=== PATIENT | male | born 1985 | race Caucasian/White ===

== ENCOUNTER 2020-02-09 19:24 | Emergency (ER) | payer OTHER ==
--- NOTE | 2020-02-09 20:13 | ED Upper Extremity ---
General Chief Complaint: Upper Extremity Stated Complaint: RT SHOULD INJ Nursing Triage Note: Pt from [facility] and was working out in his cell and fell on his right shoulder. Nursing Sepsis Screen: No Definite Risk Source: patient History of Present Illness Date Seen by Provider: Feb 09, 2020 Time Seen by Provider: 19:45 Initial Comments Patient is a 34-year-old right-handed inmate who presents with right shoulder pain after fall from standing. Patient states he jammed his shoulder. Pain is moderate to severe worse with palpation and any movement. History of right rotator cuff repair. No obvious deformity on exam. No other injury or pain complain. Onset: just prior to arrival Severity: moderate Pain/Injury Location: right shoulder Method of Injury: direct blow Modifying Factors: Improves With Movement, Improves With Pain Medication Allergies and Home Medications Allergies Coded Allergies: No Known Drug Allergies (Unverified , 02/09/20) Patient Home Medication List Home Medication List Reviewed: Yes Review of Systems Constitutional: no symptoms reported EENTM: no symptoms reported Respiratory: no symptoms reported Cardiovascular: no symptoms reported Gastrointestinal: no symptoms reported Musculoskeletal: joint pain Skin: no symptoms reported Psychiatric/Neurological: No Symptoms Reported Past Ckkfseh-Lrwidt-Btbtni Hx Past Med/Social Hx: Reviewed Nursing Past Med/Soc Hx Patient Social History Alcohol Use: Denies Use Recreational Drug Use: No Smoking Status: Never a Smoker 2nd Hand Smoke Exposure: No Recent Foreign Travel: No Contact w/Someone Who Travel: No Recent Infectious Disease Expo: No Recent Hopitalizations: No Physical Abuse: No Sexual Abuse: No Past Medical History Surgeries: Yes Orthopedic Respiratory: No Cardiac: No Neurological: No Genitourinary: No Gastrointestinal: No Musculoskeletal: No Endocrine: No HEENT: No Cancer: No Psychosocial: No Integumentary: No Blood Disorders: No Physical Exam Vital Signs Vital Signs - First Documented 02/09/20 19:25 Temp 36.7 Pulse 81 Resp 18 B/P (MAP) 165/98 (120) Pulse Ox 96 O2 Delivery Room Air Capillary Refill : Less Than 3 Seconds Height, Weight, BMI Height: '" Weight: lbs. oz. kg; BMI Method: General Appearance: mild distress HEENT: PERRL/EOMI, normal ENT inspection, pharynx normal Neck: non-tender, supple, normal inspection Cardiovascular: regular rate, rhythm Respiratory: chest non-tender, lungs clear Gastrointestinal: non tender, soft Back: normal inspection Shoulder: bone tenderness, limited ROM, pain, soft tissue tenderness Elbow/Forearm: normal inspection Wrist: Yes normal inspection Hand: normal inspection Neurologic/Psychiatric: sr. consultant II-XII nml as tested, alert, oriented x 3 Skin: normal color Progress/Results/Core Measures Results/Orders My Orders Orders - BONNIE BLANCAS DO Shoulder 3 View Right (02/09/20 19:50) Ketorolac Injection (Toradol Injection) (02/09/20 20:15) Shoulder Immoblizer (02/09/20 20:05) Medications Given in ED Current Medications Medications Dose Ordered Sig/Jaqueline Route Start Time Stop Time Status Last Admin Dose Admin Ketorolac Tromethamine 60 mg ONCE ONCE IM 02/09/20 20:15 02/09/20 20:16 02/09/20 20:07 60 MG Vital Signs/I&O 02/09/20 19:25 Temp 36.7 Pulse 81 Resp 18 B/P (MAP) 165/98 (120) Pulse Ox 96 O2 Delivery Room Air Blood Pressure Mean: 120 Departure Communication (Admissions) Right shoulder x-ray: No obvious fracture dislocation. Soft tissue right shoulder injury. Pain address, patient placed in sling. Recommend supportive care with the [facility] follow-up. Impression Primary Impression: Sprain of shoulder, right Disposition: 01 HOME, SELF-CARE Condition: Stable Departure-Patient Inst. Decision time for Depature: 20:12 Referrals: NO,LOCAL PHYSICIAN (PCP/Family) Primary Care Physician Patient Instructions: Shoulder Sprain (DC) Add. Discharge Instructions: Please take ibuprofen or Tylenol for pain and wear shoulder immobilizer. Follow- up with the [facility]. All discharge instructions reviewed with patient and/or family. Voiced understanding. BONNIE BLANCAS DO Feb 09, 2020 20:12
[2020-02-09] MEDS ORDERED: KETOROLAC 60 MG/2 ML VIAL IM ONE (20:15)
[2020-02-09 20:19] VITALS: BP 165/98
--- NOTE | 2020-02-09 20:20 | Diagnostic Imaging Report ---
INDICATION: Fell, shoulder pain. EXAMINATION: Right shoulder at 7:52 p.m. Three views were obtained. COMPARISON: There is no prior study available for comparison. FINDINGS: This study is less than optimal due to motion artifact on the transaxial view. There is no fracture, dislocation or acute bony abnormality evident. 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 The acromion, itself, has somewhat irregular appearance. This may be a sequela of prior trauma. The soft tissues are unremarkable. There are surgical clips in the soft tissues along the inferior aspect of the humeral head. IMPRESSION: 1. There is no evidence for an acute bony abnormality. 2. There are degenerative and probable post traumatic changes involving the shoulder joint. 3. If there is clinical concern regarding injury to the rotator cuff or labrum, then MRI would be recommended for additional study. Dictated by: Dictated on workstation # [id number]
== END 2020-02-09 20:20 | disposition home or self-care (01) ==
LOC: ER FS 19:24 → EDBD 19:24 → ER FS 20:20
DX: S43.401A Unspecified sprain of right shoulder joint, initial encounter (principal); W23.0XXA Caught, crushed, jammed, or pinched between moving objects, initial encounter
CPT/HCPCS: 73030; 99283; L3650

== ENCOUNTER 2020-05-08 07:04 | Emergency (ER) | payer BC, OTHER ==
[~2020-05-08] VITALS: Ht 190 cm; Wt 108.8 kg
[2020-05-08 07:13] VITALS: BP 148/100
[2020-05-08] MEDS ORDERED: LIDOCAINE 1% INJ 20 ML 20 ML VIAL ONE (07:14)
[2020-05-08] MEDS ORDERED: CEPHALEXIN 250 MG (KEFLEX) CAP PO ONE (07:45)
--- NOTE | 2020-05-08 07:46 | ED Upper Extremity ---
General Chief Complaint: Laceration Stated Complaint: LT HAND LAC Nursing Triage Note: Patient reports he was working in the dark this morning and cut his left thumb/palm on something sharp. Nursing Sepsis Screen: No Definite Risk Source: patient History of Present Illness Date Seen by Provider: May 08, 2020 Time Seen by Provider: 07:20 Initial Comments Patient is a 34-year-old right-handed male who presents with laceration to left thumb base. 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 He did not see what he cut his hand on. Tetanus is up-to-date. On exam, patient has 4 cm full-thickness laceration following the pattern of the proximal thumb crease. No loss of motor function or sensation. Injury occurred just prior to ED arrival. Onset: just prior to arrival Pain/Injury Location: left thumb Method of Injury: incised Modifying Factors: Improves With Other Allergies and Home Medications Allergies Coded Allergies: No Known Drug Allergies (Unverified , 02/09/20) Patient Home Medication List Home Medication List Reviewed: Yes Review of Systems Constitutional: see HPI EENTM: see HPI Respiratory: see HPI Cardiovascular: see HPI Gastrointestinal: see HPI Genitourinary: see HPI Musculoskeletal: see HPI Skin: see HPI Psychiatric/Neurological: See HPI All Other Systems Reviewed Negative Unless Noted: Yes Past Ludmapl-Qspdoi-Knyknl Hx Past Med/Social Hx: Reviewed Nursing Past Med/Soc Hx Patient Social History Alcohol Use: Denies Use Smoking Status: Never a Smoker 2nd Hand Smoke Exposure: No Recent Infectious Disease Expo: No Recent Hopitalizations: No Seasonal Allergies Seasonal Allergies: No Past Medical History Surgeries: Yes Orthopedic Respiratory: No Cardiac: No Neurological: No Genitourinary: No Gastrointestinal: No Musculoskeletal: No Endocrine: No HEENT: No Cancer: No Psychosocial: No Integumentary: No Blood Disorders: No Physical Exam Vital Signs Vital Signs - First Documented 05/08/20 07:13 Temp 36.8 Pulse 97 Resp 16 B/P (MAP) 148/100 (116) Pulse Ox 96 O2 Delivery Room Air Capillary Refill : Less Than 3 Seconds Height, Weight, BMI Height: '" Weight: lbs. oz. kg; 30.00 BMI Method: General Appearance: mild distress (SECONDARY TO PAIN) Hand: laceration (1 cm laceration following the distribution of the proximal thumb crease on the left thumb. Wound is clean, there is no foreign bodies present. Neurovascularly intact. No exposed tendon or vessel) Neurologic/Tendon: normal sensation, normal motor functions Procedures/Interventions Wound Location: Upper Extremities Other Wound Location 3.5 centimeters full-thickness laceration following distribution of left proximal thumb crease Wound Length (cm): 3.5 Wound's Depth, Shape: sub Q Irrigated w/ Saline (ccs): 3000 (Tap water) Wound Debrided: moderate Suture: Prolene Suture Size: 3-0 Number of Sutures: 5 (Running locked) Layer Closure?: 1 Progress/Results/Core Measures Results/Orders My Orders Orders - BONNIE BLANCAS DO Lidocaine 1% Inj 20 Ml (Xylocaine 1% Inj (05/08/20 07:14) Cephalexin Capsule (Keflex Capsule) (05/08/20 07:45) Vital Signs/I&O 05/08/20 07:13 Temp 36.8 Pulse 97 Resp 16 B/P (MAP) 148/100 (116) Pulse Ox 96 O2 Delivery Room Air Blood Pressure Mean: 116 Departure Communication (Admissions) Wound cleansed, closed and bandaged. First dose of antibiotics given. Typical wound care instructions provided. Patient instructed to return to the ED in 7 to 10 days for suture removal or sooner if signs of infection. Patient verbalizes under standing agreement discharge instructions prior to departure. Impression Primary Impression: Laceration of left thumb Disposition: 01 HOME, SELF-CARE Condition: Stable Departure-Patient Inst. Decision time for Depature: 07:47 Referrals: NO,LOCAL PHYSICIAN (PCP/Family) Primary Care Physician Patient Instructions: Laceration Repair With Stitches ED Add. Discharge Instructions: Please keep wound clean covered and dry. Take ibuprofen for pain and hydrocodone as needed for additional relief. Complete full course of antibiotics. Return to the ED in 8 to 10 days for suture removal or sooner if signs of infection. All discharge instructions reviewed with patient and/or family. Voiced understanding. Scripts Hydrocodone/Acetaminophen (Hydrocodone-Acetamin 5-325 mg) 1 Each Tablet 1 TAB PO Q4H PRN for PAIN-MODERATE (5-7), #10 TAB Prov: BONNIE BLANCAS DO 05/08/20 Cephalexin (Cephalexin) 500 Mg Tablet 500 MG PO QID, #28 TAB 0 Refills Prov: BONNIE BLANCAS DO 05/08/20 BONNIE BLANCAS DO May 08, 2020 07:46
[2020-05-08] MEDS ORDERED: CEPH500T PO (07:48)
[2020-05-08] MEDS ORDERED: ACHD5005 PO (07:48)
== END 2020-05-08 07:55 | disposition home or self-care (01) ==
LOC: EDUNIT# 07:04 → ER FS 07:08
DX: S61.012A Laceration without foreign body of left thumb without damage to nail, initial encounter (principal); W26.9XXA Contact with unspecified sharp object(s), initial encounter
CPT/HCPCS: 12002; 99284; A6223